=== PATIENT | male | born 1995 | race Two or more races ===

== ENCOUNTER 2017-11-10 11:22 | Emergency (ER) | payer OTHER ==
[2017-11-10 11:51] VITALS: BP 136/73; PULSE 66; TEMP 97.5; BMI 22.9
[2017-11-10] MEDS ORDERED: IBUPROFEN 600 MG TABLET (FP) PO ONE ×2 (12:29→12:31)
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
== END 2017-11-10 12:48 | disposition home or self-care (01) ==
LOC: JERFT 11:22
DX: M54.5 Low back pain (principal); V43.62XA Car passenger injured in collision with other type car in traffic accident, initial encounter; Y93.89 Activity, other specified; Y92.410 Unspecified street and highway as the place of occurrence of the external cause
CPT/HCPCS: 99281-25